=== PATIENT | male | born 1985 | race Caucasian/White ===

== ENCOUNTER → 2017-12-08 11:20 | Outpatient (CLI) | payer OTHER, SELFPAY ==
--- NOTE | 2017-12-08 11:32 | US_ITS ---
STUDY: SCROTUM ULTRASOUND REASON FOR EXAM: Male, 31 years old. Testicular nodule on the right. TECHNIQUE: Ultrasound evaluation of the scrotum was performed with color Doppler and static alvarado-scale imaging. COMPARISON: None. FINDINGS: RIGHT TESTICLE INTRATESTICULAR: There is a normal size of the right testicle. The right testicle measures 4.2 x 3.0 x 2.4 cm. There is a homogenous echotexture. There is normal arterial and normal venous vascularity. There is no demonstrated right testicular mass or cyst. EXTRATESTICULAR: The epididymis is normal in size. The epididymis head measures 1.3 cm. There is normal vascularity of the epididymis. There is a well-defined 5 mm cystic structure within the epididymis, without internal echoes, consistent with an epididymal cyst. There is no demonstrated hydrocele. There is no demonstrated varicocele. There is no demonstrated extratesticular mass or cyst. LEFT TESTICLE INTRATESTICULAR: There is a normal size of the left testicle. The left testicle measures 4.2 x 3.3 x 2.3 cm. There is a homogenous echotexture. There is normal arterial and normal venous vascularity. There is no demonstrated left testicular mass or cyst. EXTRATESTICULAR: The epididymis is normal in size. The epididymis head measures 1.1 cm. There is normal vascularity of the epididymis. There is no demonstrated epididymal cystic structure. There is no demonstrated hydrocele. There are prominent extratesticular veins consistent with a small varicocele. There is no demonstrated extratesticular mass or cyst. US/Testicular with Arterial Flow IMPRESSION: Normal bilateral testicles. No evidence for mass. No evidence for torsion. 5 mm right epididymal cyst. Small left varicocele. Electronically Signed: Devin Sierra MD at 21:06 EDT , Service support ,
== END ==
DX: N50.89 Other specified disorders of the male genital organs (principal)
CPT/HCPCS: 76870; 93976

== ENCOUNTER 2024-07-15 06:04 | Day surgery (SDC) | payer OTHER, SELFPAY ==
[2024-07-15] VITALS (8 sets, daily range): BP systolic 113–136; BP diastolic 77–89; PULSE 87–105; RESP 16–18; TEMP 36.1–36.6; O2SAT 91–100; BMI 29.2
--- NOTE | 2024-07-15 06:57 | PCM.HP.BLA ---
History and Physical Date of Admission: 07/15/24 Intake Vital Signs 05/13/2413:09 Height 6 ft Weight: 217 lb BMI 29.4 BP 126/79 H Blood Pressure Location Rt brachial Position Sitting Respiration 16 Intake Visit Reasons: RIGHT INGUINAL HERNIA Chief Complaint: Right inguinal hernia Grinding Machine Operator Required: No Is patient in pain?: No Allergies Penicillins (PCN) Allergy (Mild, Verified 05/13/24 13:10) Hives Medications ?Medication ?Instructions ?Recorded ?Confirmed ?Type NK 02/07/20 05/13/24 History Have you fallen in the past year?: No PFSH Medical History Injury of left hip Left inguinal hernia Surgical History History of hip surgery S/P left inguinal hernia repair Social History Smoking Status: Never smoker alcohol intake: never HPI HPI HPI: Patient is a 38-year-old male here for right inguinal hernia. He has had a left inguinal hernia repair in the past. He reports this has been out for several months. He says it only comes out about 20% of time but when it does it is very painful. He would like to wait until June to have it repaired. He denies nausea or vomiting or fevers or chills. The hernia is easily reducible and it does come out. ROS General General: No weight change, appetite, fatigue, colon cancer, breast cancer or weakness HEENT HEENT: No difficulty swallowing, eye injury, eye surgery, swollen glands or hoarseness Endo Endocrine: No thyroid disease, diabetes mellitus, thyroid cancer, Hair loss, heat intolerance or cold intolerance Skin Skin: No rash or changing moles Breast Breast: No left breast lump, right breast lump, nipple discharge, breast pain, abnormal mammogram, abnormal US or breast enlargement Musc Musculoskeletal: No back problems, arthritis, rheumatoid arthritis, gout or joint pain Cardio Cardiovascular: No murmur, pacemaker, heart disease, atrial fibrillation, high blood pressure, heart attack, heart stent, palpitations, shortness of breat with exertion or chest pain Psych Psychiatric: No depression, anxiety or hearing voices Resp Respiratory: No shortness of breath, No sleep apnea, No cough, No COPD, No asthma, No emphysema and No wheezing Gastro Gastrointestinal: No abdominal pain, No nausea or vomiting, No diarrhea, No constipation, No blood in stool, No acid reflux, No hemorrhoids, No ulcers, No gallbladder problem and No black,tarry stools Singh Hematologic: No blood thinners, No blood disorders, No bleeding, No anemia and No blood clots Neuro Neurologic: No system reviewed and no additional complaints, except as documented, No as per HPI, No abnormal gait, No abnormal hearing, No abnormal movements, No abnormal speech, No behavioral changes, No burning sensations, No confusion, No convulsions, No disequilibrium, No dizziness, No localized weakness, No frequent falls, No headache(s), No lack of coordination, No loss of vision, No memory loss, No numbness, No other visual disturbances, No radicular pain, No restless legs, No sensory deficit, No syncope, No tingling, No tremor(s), No weakness and No other Exam Const General: cooperative Orientation: alert and oriented x3 HENMT Head: normal to inspection Neck Neck: normal visual inspection and full ROM Chest Chest palpation & inspection: normal inspection of the chest Resp Effort & Inspection: normal respiratory effort Auscultation: clear to auscultation bilaterally Cardio Rate: regular rate Rhythm: regular rhythm GI Inspection: non-distended Palpation: soft, hernia direct inguinal on the right and nontender Skin General: no rashes or lesions noted Neuro General: patient alert and patient oriented x3 Extrem General: full ROM Psych Appearance: grossly normal Mental Status: mental status grossly normal Assessment and Plan Assessment and Plan (1) Right inguinal hernia: Status: Acute Plan: The patient has a right inguinal hernia which seems direct. It is easily reducible. I discussed robotic assisted laparoscopic right inguinal hernia repair with mesh. I discussed the procedure in detail as well as the risks including but not limited to bleeding, infection, injury other organ such as the blood supply to the testicle or the testicle itself or the bladder or bowel or ureter. Patient understands the risks and is willing to proceed. I also discussed chronic groin pain and mesh implantation. Jose Hansen MD Pager: [facility] [address] [place] [address], [address] [place] [address] Office: I have seen and examined the patient and reviewed the H&P. THere have been no changes
[2024-07-15] MEDS: 0.9% Normal Saline (1000mL) 1,000 ML 15 ML IV ×2 (07:01→09:17)
--- NOTE | 2024-07-15 07:14 | PCM.PRE.AN2 ---
ASA Classification* ASA Classification ASA Classification: 2 Assessment & Plan Anesthesia* Anesthesia Assessment Anesthesia Assessment: Discussed sedation and/or anesthesia options, risks, benefits, and alternatives with patient/parents/legal guardian/POA. Questions invited. The patient/parents/legal guardian/POA seems to understand and agrees to proceed with anesthesia plan. Reviewed the physical assessment, medical history, allergy history and patient home medications list prior to surgery/procedure/anesthetic and documented any changes. Performed airway and anesthesia risk assessments. Anesthesia Type Anesthesia Type: General History Source History Obtained from:: Patient and Chart Anesthesia Focused Assessment* Temperature: 97 F Pulse Rate: 88 Blood Pressure: 136/88 Respiratory Rate: 16 Pulse Ox: 100 Oxygen Delivery Method: Room Air Airway Assessment Mouth opens: >3 cm Mallampati Score: II Teeth Condition: Intact Neck Range of motion (ROM): Full ROM Focused Labs Anesthesia Preop lab: CBC CHEMISTRY COAG Pre-Assessment Diagnosis/Proposed Procedure Planned Operative Procedure(s): (R) Lap Robotic Inguinal Hernia w/mesh Anesthesia History Anesthesia History - reliability technologist: Anesthesia History - reliability technologist Hx Hospitalization No 07/01/24 11:34 Any Problems With Anesthesia No 07/01/24 11:34 Cholinesterase deficiency No 07/01/24 11:34 You/Your Family Experience No 07/01/24 11:34 fever (hyperthermia) with Relationship Recent Exposure to Contagious No 07/15/24 06:32 Disease Does patient have nerve No 07/01/24 11:34 stimulator Patient instructed to have device shut off --Does patient have Pacemaker No 07/15/24 06:32 or ICD? When Was Last Pacemaker Check QUESTION #4 FULL TEXT: You/Your Family Experience fever (hyperthermia) with Anesthesia Last Oral Intake Last Oral intake: Last Oral Intake NPO since 20:00 07/15/24 06:32 Meds taken in AM with sips of No 07/15/24 06:32 water? Meds patient instructed to take am of surgery PONV PONV - reliability technologist: PONV - reliability technologist Female No 07/01/24 11:34 HX of Motion Sickness No 07/01/24 11:34 HX of N/V After Surgery No 07/01/24 11:34 Non-Smoker Yes 07/01/24 11:34 Duration of Surgery greater No 07/01/24 11:34 than 60 minutes Number of Risk Factors 1 07/01/24 11:34 PONV Score Low Risk 07/01/24 11:34 Height & Weight Height & Weight: Anesthesia: Height & Weight Height 6 ft 07/15/24 06:32 Weight: 98 kg 07/15/24 06:32 Body Mass Index (BMI) 29.2 07/15/24 06:32 Respiratory Assessment Respiratory Assessment - reliability technologist: Respiratory Tract Infection Hx - reliability technologist Hx Respiratory Tract Infection Yes: HEAD COLD-NO FEVER OR 07/01/24 11:34 CHEST CONGESTION STOP Sleep Apnea STOP Sleep Apnea - reliability technologist: STOP Sleep Apnea - reliability technologist Hx Hypertension No 07/01/24 11:34 Hx Sleep Apnea No 07/01/24 11:34 CPAP BIPAP Do you snore loudly (louder No 07/01/24 11:34 than talking or can be heard Do you often feel tired/ No 07/01/24 11:34 fatigued/ sleepy during daytime? Has anyone observed you stop No 07/01/24 11:34 breathing during sleep? STOP Results Negative 07/01/24 11:34 QUESTION #5 FULL TEXT : Do you snore loudly (louder than talking or can be heard through closed doors)? Tobacco Use History Tobacco Use History - reliability technologist: Tobacco Use History - reliability technologist Tobacco Use Smoking Status Never smoker 07/01/24 11:34 Hx Tobacco Use No 07/01/24 11:34 Years Smoking Packs Smoked per Day Smoking Cessation Date was within the last 15 years Hx Smoking Cessation Date Hx Smoking Cessation Counseling Hematologic Medial History Hematologic Hx - reliability technologist: Hematologic Medical Hx - broke man Hx of Blood Transfusion No 07/01/24 11:34 Hx of Transfusion in last 3 No 07/01/24 11:34 Months Date of Last Transfusion (if within last 3 months) Ever experience any problems No 07/01/24 11:34 with transfusion(s)? Specify any problems Hx of Preganancy in last 3 N/A 07/01/24 11:34 Months Nurse Filling Out Transfusion VCHRISTIN 07/01/24 11:34 & Questions: Date: 07/01/24 07/01/24 11:34 Time: 11:36 07/01/24 11:34 Patient unable to answer at this time (ie. confused, unrespo /Reproduction History /Reproductive History - reliability technologist: /Reproductive Hx- reliability technologist Hx Now Gestational Age (in weeks): EDC: Hx Hx Para Hx Section SAB Active Medications Active Medications: Current Medications Generic Name Dose Route Start Last Admin Trade Name Freq PRN Reason Stop Dose Admin Clindamycin Phosphate 900 mg in 50 mls @ 75 mls/hr 07/15/24 07:30 Cleocin IV 07/15/24 08:09 PREOP ONE Sodium Chloride 1,000 mls @ 15 mls/hr 07/15/24 06:15 07/15/24 07:01 IV 07/20/24 19:34 15 mls/hr .Q48H JUSTYNA Administration Protocol [facility] Medical History Non-smoker Injury of left hip Left inguinal hernia Home Medications ?Medication ?Instructions ?Recorded ?Last Taken ?Type NK 02/07/20 Unknown History Allergy/AdvReac Type Severity Reaction Status Date / Time Penicillins (PCN) Allergy Mild Hives Verified 07/15/24 06:30 Surgical History History of hip surgery S/P left inguinal hernia repair Social History Smoking Status: Never smoker alcohol intake: never Review of Systems (Anesthesia) ROS Narrative System reviewed and no additional complaints, except as documented.
[2024-07-15] MEDS: Clindamycin 900 MG/50 ML BAG 75 MG IV (07:28)
--- NOTE | 2024-07-15 08:30 | PCM.OPRPT ---
Operative Report (Standard) Operative Information Date of Procedure: 07/15/24 Pre-Operative Diagnosis: Right inguinal hernia Post-Operative Diagnosis: Right inguinal hernia Surgery/Procedure Performed: Robotic assisted laparoscopic right inguinal hernia repair with mesh manager code: Yes Electronics Scale Tester: Jim Huynh Tasks completed by certified surgical first assistant: Opening and Closing Type of Anesthesia: General/Regional RN Documented Start/Stop Times: Operation Date: 07/15/24 07:30 Case Time Into Pre-Op 07/15/24 06:13 Out of Pre-Op 07/15/24 07:25 Anesthesia Start 07/15/24 07:28 Into Room 07/15/24 07:28 Procedure Start 07/15/24 07:51 Procedure Start Time: 07:51 Procedure Stop Time: 08:41 Select all DRAINS/GRAFTS/IMPLANTS that apply: Implanted device Implanted device details: ProGrip mesh in the right groin Estimated Blood Loss: 5 Specimen collected: No Description of surgery: Patient was brought back to the operating room and general anesthesia was induced. The abdomen was prepped and draped in usual sterile fashion. A midline incision was made superior to the umbilicus and the fascia was grasped and elevated. A Veress needle was placed into the abdomen and a drop test was performed. The abdomen was insufflated to 15 mmHg. The Veress needle was then removed and a port was placed. The camera was placed into the abdomen and inspected for injuries and there were none from entry. Patient was placed in Trendelenburg position and the pelvis was inspected. The patient had a right inguinal hernia. Under direct visualization an 8 mm port was placed in the right lateral abdominal sidewall as well as the left lateral abdominal sidewall and then the robot was docked. Using electrocautery scissors an incision was made in the right lower quadrant in the peritoneum. Dissection was carried inferiorly until the hernia was encountered. The hernia sac was circumferentially dissected free and reduced. After there was good dissection a ProGrip mesh was placed in the right groin and unfolded over the hernia defect with good coverage surrounding it. The peritoneum was then reapproximated using a running 3 OV lock suture completely covering the mesh. Next the area was inspected and there was good hemostasis and the peritoneum completely covered the mesh. The robot was undocked and the instruments were removed. The ports were removed and the abdomen was allowed to desufflate. The incisions were injected with local anesthetic and closed with interrupted 4-0 Monocryl sutures. Steri-Strips and bandages were applied. Scrotum was checked at the end of the case and contained both testicles. Patient was brought to PACU in stable condition and tolerated the procedure well. Surgical Findings: Indirect right inguinal hernia Complications Complications: No Admit VTE Documentation VTE Mechan Device Prophylaxis: SCD's
--- NOTE | 2024-07-15 08:34 | DCINST_ITS ---
Discharge Instructions Procedure Hernia Diet Discharge Diet: Light diet - advance as tolerated Activity Discharge Activity: May Not Drive (for 2-3 days or while taking narcotic pain meds.) and May Shower (with the bandage in place 1-2 days after surgery.) Lifting Restrictions: 20 pounds for 4 weeks. Additional Activity Instructions:: Climbing stairs is fine, walking is encouraged. Sitting in bed may be uncomfortable. Sitting up using your lateral muscles (sitting up sideways) is usually more comfortable. Do not drive, work heavy equipment of sign legal documents for 24 hours. If your hernia repair was an inguinal repair, you may have scrotal swelling, an ice pack and/or athletic support can provide more comfort. Pain medications may cause nausea, you should typically eat light foods as you take your pain medications. Pain medications may also cause constipation. If you have difficulty with this, discuss with your doctor. Dressing / Incision Call your doctor if your incision/area has: Continuous Slow Oozing, Sudden Increased Bleeding, Increased Pain/ Swelling, Increased Redness and Foul Smelling Discharge Call your doctor if you observe: Fever of 101 or Higher Suture Line Care: Avoid Pulling/Pushing and Avoid Pinching/Bending Remove Dressing in: 2 days (Remove clear bandages in 2 days, remove Steri-Strips in 7 to 10 days.) Cleanse incision/area with: Soap & Water Follow Up Care Please Follow Up With: Jose Hansen MD When: Please call to schedule 2 week follow up appointment. [phone] Test Results: Test results from this visit will be discussed in further detail at your follow- up appointment, if applicable. Discharge Plan Admission Attending Provider: Jose Hansen Primary Care Provider: Care Physician,Cathi Primary Instructions Print Language: Kazakh Discharge Orders/Prescriptions Prescriptions: New oxycodone 5 mg Tablet 5 - 10 mg PO Q4H PRN PRN (Reason: Pain Score 4-10) 5 Days Qty: 10 0RF No Action NK Referrals / Follow Up: Care PhysicianCathi Primary [Primary Care Provider] - Disposition Disposition (needs filled in before D/C Order can be placed): Home, Self Care
[2024-07-15] MEDS: Bupivacaine Mpf 0.5% 30 ML VIAL (08:40)
--- NOTE | 2024-07-15 08:52 | PCM.POST.ANE ---
Anesthesia: Postop Eval I Current Vital Signs Temperature: 97.5 F Pulse Rate: 102 Blood Pressure: 125/89 Respiratory Rate: 18 Pulse Ox: 96 Oxygen Delivery Method: Room Air Assessment Airway patent: Yes Spontaneous unlabored respirations: Yes Mental status: Awake and Calm nausea: No Vomiting: No Anesthesia Complication: No Fluid Hydration Crystalloid volume administer (ml): 800 Total IV fluid infused: 800 Progress Note Anesthesia document: Postop Eval 1 completed: Yes
--- NOTE | 2024-07-15 09:21 | POSTOPAN2_ITS ---
Anesthesia Postop Eval I Sum Postop Eval Completion status Anesthesia document: Postop Eval 1 completed: Yes Anesthesia Postop Eval I Summary Anesthesia Postop Eval I Summary: Anesthesia Postop Eval I: Assessment Summary Airway patent Yes 07/15/24 08:53 PROTOTYPE MODEL [email or web address] Spontaneous unlabored Yes 07/15/24 08:53 PROTOTYPE MODEL [email or web address] respirations Mental status Awake,Calm 07/15/24 08:53 PROTOTYPE MODEL [email or web address].[email or web address] nausea No 07/15/24 08:53 PROTOTYPE MODEL [email or web address].[email or web address] Vomiting No 07/15/24 08:53 PROTOTYPE MODEL [email or web address].[email or web address] Anesthesia Postop Eval I: Fluid Summary Crystalloid volume administer 800 07/15/24 08:53 PROTOTYPE MODEL [email or web address] (ml) Colloids volume administered ( ml) Blood Product volume administered (ml) Total IV fluid infused 800 07/15/24 08:53 PROTOTYPE MODEL [email or web address] Anesthesia Postop Eval I: Summary Notes Anesthesia Complication No 07/15/24 08:53 PROTOTYPE MODEL [email or web address] Anesthesia Complication Comment: Post-operative progress note Anesthesia: Postop Eval II Evaluation Mental status: Awake Pain Level: 0 nausea: No Vomiting: No Complications Anesthesia Complication: No
--- NOTE | 2024-07-15 09:21 | PCM.POSTANE2 ---
Anesthesia Postop Eval I Sum Postop Eval Completion status Anesthesia document: Postop Eval 1 completed: Yes Anesthesia Postop Eval I Summary Anesthesia Postop Eval I Summary: Anesthesia Postop Eval I: Assessment Summary Airway patent Yes 07/15/24 08:53 MEDICAL SCIENCE [email or web address] Spontaneous unlabored Yes 07/15/24 08:53 MEDICAL SCIENCE LIAISON.[email or web address] respirations Mental status Awake,Calm 07/15/24 08:53 MEDICAL SCIENCE LIAISON.[email or web address] nausea No 07/15/24 08:53 MEDICAL SCIENCE LIAISON.[email or web address] Vomiting No 07/15/24 08:53 MEDICAL SCIENCE [email or web address].[email or web address] Anesthesia Postop Eval I: Fluid Summary Crystalloid volume administer 800 07/15/24 08:53 MEDICAL SCIENCE LIAISON.[email or web address] (ml) Colloids volume administered ( ml) Blood Product volume administered (ml) Total IV fluid infused 800 07/15/24 08:53 MEDICAL SCIENCE [email or web address] Anesthesia Postop Eval I: Summary Notes Anesthesia Complication No 07/15/24 08:53 MEDICAL SCIENCE [email or web address] Anesthesia Complication Comment: Post-operative progress note Anesthesia: Postop Eval II Evaluation Mental status: Awake Pain Level: 0 nausea: No Vomiting: No Complications Anesthesia Complication: No
[2024-07-15] MEDS: Acetaminophen 325 MG Tablet 650 MG PO (09:44)
== END 2024-07-15 10:27 | disposition home or self-care (01) ==
LOC: SDC 06:07 → AC 06:08
PROVIDERS: Referring Provider Surgery; Visit Provider Surgery
PROC: (CPT 49650; principal; 2024-07-15 07:10)
DX: K40.90 Unilateral inguinal hernia, without obstruction or gangrene, not specified as recurrent (principal)
CPT/HCPCS: 49650; S2900; 00840; J2405